=== PATIENT | male | born 1965 | race Caucasian/White ===

== ENCOUNTER → 2020-07-15 | Outpatient (CLI) | payer OTHER ==
--- NOTE | 2020-07-15 14:52 | KCIC ---
EXAMINATION: MRI RIGHT KNEE WITHOUT IV CONTRAST CLINICAL HISTORY: Chronic knee pain and mechanical symptoms. History of prior meniscal surgery in 201 2 TECHNIQUE: Multiplanar multisequential images obtained through the knee without intravenous contrast. COMPARISON: Bilateral knee radiographs 07/04/2020 FINDINGS: MENISCI: Medial Meniscus: Truncation of the posterior horn with increased meniscal signal, nonspecific but lik alfredo related to postoperative changes given reported surgical history. No definite recurrent meniscus tear. Lateral Meniscus: Intact. LIGAMENTS: ACL: Intact PCL: Intact MCL: Intact LCL Complex: Intact CARTILAGE: Medial Femoral Condyle: Large area(s) of full thickness cartilage loss/fissuring Medial Tibial Plateau: Small area(s) of full thickness cartilage loss and or fissuring with subchondr al marrow reactive/cystic changes Lateral Femoral Condyle: Normal Lateral Tibial Plateau: Single full-thickness fissure Patella: Moderate sized area(s) of predominantly high grade (greater than 50% thickness) cartilage lo ss and or fissuring with smaller area(s) of full thickness cartilage loss and or fissuring with subch ondral marrow reactive/cystic changes Trochlea: Moderate sized area(s) of predominantly high grade (greater than 50% thickness) cartilage l oss and or fissuring with smaller area(s) of full thickness cartilage loss and or fissuring TENDONS: Distal quadriceps and patellar tendons intact. Popliteus tendon intact. BONES AND MARROW: No evidence of acute fracture or suspicious marrow replacing process. MUSCLES: Muscle bulk and signal intensity within normal limits. JOINT FLUID AND SYNOVIUM: Small joint effusion with a 1.8 x 2.0 cm joint body in the posterior interc ondylar notch. No synovitis. Small Rodriguez's cyst containing a joint body which likely corresponds to t he radiographic finding in the posterior knee. IMPRESSION: Tricompartmental full-thickness chondral wear as described, moderate to severe in the medial compartm ent. Nonspecific changes in the medial meniscus as described, likely postoperative with no definite recurr ent tear. Large joint bodies in the posterior intercondylar notch and small Rodriguez's cyst. Electronically signed by: Guanako Webb DO (07/15/2020 2:50 PM) [id number]
== END ==
LOC: KCIC MRI 10:51
PROVIDERS: ATTEND Physician Assistant Medical
DX: M71.21 Synovial cyst of popliteal space [Baker], right knee (principal)
CPT/HCPCS: 73721